=== PATIENT | male | born 1985 | race Caucasian/White ===

== ENCOUNTER 2017-08-08 06:19 | Emergency (ER) | payer BC ==
[2017-08-08] MEDS ORDERED: HYDROmorphone 1 MG/ML Syringe IM ONE (07:04)
[2017-08-08] MEDS ORDERED: Diazepam 5 MG Tab PO ONE (07:05)
[2017-08-08] MEDS ORDERED: Ketorolac 60 MG/2 ML SDV IM ONE (07:05)
--- NOTE | 2017-08-08 07:15 | EDM.PDOC ---
ED HPI GENERAL MEDICAL PROBLEM - General Chief Complaint: Neck Problem Stated Complaint: NECK PAIN Time Seen by Provider: 08/08/17 06:55 Source of Information: Reports: Patient History Limitations: Reports: No Limitations - History of Present Illness INITIAL COMMENTS - FREE TEXT/NARRATIVE: The patient presents with neck pain and stiffness. This started yesterday and it got a little better but now it is back and more severe. This all started about 5 years ago and then he had an episode 1 1/2 years ago. He denies any trauma. He has no numbness or weakness. He has no fever, chills, cough, congestion, runny nose, chest pain or shortness of breath. Onset: Gradual Duration: Day(s): (Yesterday) Location: Reports: Neck Quality: Reports: Sharp Severity: Moderate Improves with: Reports: Immobilization Worsens with: Reports: Movement Context: Denies: Trauma Associated Symptoms: Reports: No Other Symptoms Left Neck Pain Score (Numeric/FACES): 8 - Related Data Allergies Allergy/AdvReac Type Severity Reaction Status Date / Time amoxicillin [Amoxicillin] Allergy Hives Verified 08/08/17 06:31 cefaclor [From Ceclor] Allergy Hives Verified 08/08/17 06:31 cephalexin monohydrate Allergy Hives Verified 08/08/17 06:31 [From Keflex] Penicillins Allergy Hives Verified 08/08/17 06:31 Sulfa (Sulfonamide Allergy Hives Verified 08/08/17 06:31 Antibiotics) Home Meds: Home Meds Diclofenac Sodium [Voltaren] 75 mg PO BIDMEALS #20 tab.cr 08/14/15 [Rx] Diazepam [Valium] 5 mg PO TID PRN #20 tab 08/08/17 [Rx] Hydrocodone/Acetaminophen [Hydrocodon-Acetaminophen 5-325] 1 - 2 each PO Q6HR PRN #20 tablet 08/08/17 [Rx] tiZANidine HCl [Tizanidine HCl] 1 tab PO TID PRN 08/08/17 [History] Past Medical History - Past Health History Medical/Surgical History: Denies Medical/Surgical History - Infectious Disease History Infectious Disease History: Reports: Chicken Pox - Past Surgical History GI Surgical History: Reports: Appendectomy Social & Family History - Tobacco Use Smoking Status *Q: Never Smoker Second Hand Smoke Exposure: No - Caffeine Use Caffeine Use: Reports: Coffee, Soda - Alcohol Use Days Per Week of Alcohol Use: 0 - Recreational Drug Use Recreational Drug Use: No ED ROS GENERAL - Review of Systems Review Of Systems: See Below Constitutional: Reports: No Symptoms HEENT: Reports: No Symptoms Respiratory: Reports: No Symptoms Cardiovascular: Reports: No Symptoms Endocrine: Reports: No Symptoms GI/Abdominal: Reports: No Symptoms : Reports: No Symptoms Musculoskeletal: Reports: Neck Pain ED EXAM, UPPER BACK/NECK PAIN - Physical Exam Exam: See Below Exam Limited By: No Limitations General Appearance: Alert, No Apparent Distress Ears Exam: Normal External Exam Nose Exam: Normal Inspection Head Exam: Atraumatic, Normocephalic Neck Exam: Tenderness (Mild bilateral tenderness. Patient cannot look up, down , left or right.) Cardiovascular/Respiratory: Regular Rate, Rhythm, No M/R/G, Normal Breath Sounds , No Respiratory Distress GI/Abdominal: Soft, Non-Tender, No Organomegaly, No Mass Extremities: Normal Inspection Course - Vital Signs Last Recorded V/S: Last Vital Signs Temp 97.1 F 08/08/17 06:26 Pulse 80 08/08/17 06:26 Resp 18 08/08/17 06:26 BP 153/95 H 08/08/17 06:26 Pulse Ox 100 08/08/17 06:26 - Orders/Labs/Meds Orders: Active Orders 24 hr Category Date Time Status Diazepam [Valium] Med 08/08/17 07:05 Once 5 mg PO ONETIME ONE HYDROmorphone [Dilaudid] Med 08/08/17 07:04 Once 1 mg IM ONETIME ONE Ketorolac [Toradol] Med 08/08/17 07:05 Once 60 mg IM ONETIME ONE - Re-Assessments/Exams Free Text/Narrative Re-Assessment/Exam: 08/08/17 07:19 I ordered dilaudid 1mg IM, toradol 60mg IM, and valium 5mg by mouth. Departure - Departure Time of Disposition: 07:30 Disposition: Home, Self-Care 01 Condition: Good Clinical Impression: Torticollis, acute - Discharge Information Prescriptions: Hydrocodone/Acetaminophen [Hydrocodon-Acetaminophen 5-325] 1 - 2 each PO Q6HR PRN #20 tablet PRN Reason: Pain Diazepam [Valium] 5 mg PO TID PRN #20 tab PRN Reason: Pain Referrals: PCP,None [Primary Care Provider] - Sandra Molina MD [Physician] - 1 Week Additional Instructions: Take an antiinflammatory such as motrin or aleve. You may also take the hydrocodone 1-2 pills every 6 hours as needed for pain. I can also take valium 3 times per day as needed for pain. It works good as a muscle relaxer. Follow up with Dr Molina within 1 week. Please return if you are worse. - My Orders Last 24 Hours: My Active Orders 08/08/17 07:04 HYDROmorphone [Dilaudid] 1 mg IM ONETIME ONE 08/08/17 07:05 Diazepam [Valium] 5 mg PO ONETIME ONE Ketorolac [Toradol] 60 mg IM ONETIME ONE - Assessment/Plan Last 24 Hours: My Active Orders 08/08/17 07:04 HYDROmorphone [Dilaudid] 1 mg IM ONETIME ONE 08/08/17 07:05 Diazepam [Valium] 5 mg PO ONETIME ONE Ketorolac [Toradol] 60 mg IM ONETIME ONE
[2017-08-08 07:32] VITALS: BP 131/90
== END 2017-08-08 08:07 | disposition home or self-care (01) ==
LOC: JD.ED 06:19
DX: M43.6 Torticollis (principal); Z79.899 Other long term (current) drug therapy; Z88.2 Allergy status to sulfonamides; Z88.1 Allergy status to other antibiotic agents; Z88.0 Allergy status to penicillin; Z88.8 Allergy status to other drugs, medicaments and biological substances
CPT/HCPCS: 96372; 99283-25; A9270-GY; J1170; J1885